=== PATIENT | male | born 1970 | race Caucasian/White ===

== ENCOUNTER 2020-03-24 15:11 | Emergency (ER) | payer OTHER ==
[~2020-03-24] VITALS: Ht 182 cm; Wt 105.0 kg
--- NOTE | 2020-03-24 15:26 | ED Lower Extremity ---
General Chief Complaint: Laceration Stated Complaint: L FINGER LAC Allergies and Home Medications Allergies Coded Allergies: No Known Drug Allergies (Unverified , 03/24/20) Past Kkjxsrh-Zlprge-Jtaifz Hx Patient Social History Recent Foreign Travel: No Contact w/Someone Who Travel: No Physical Exam Vital Signs Vital Signs - First Documented 03/24/20 15:11 Temp 37.0 Pulse 73 Resp 16 B/P (MAP) 140/88 (105) Pulse Ox 98 O2 Delivery Room Air Capillary Refill : Height, Weight, BMI Height: '" Weight: lbs. oz. kg; BMI Method: Progress/Results/Core Measures Results/Orders My Orders Orders - VALENTINO LOONEY MD Dipht,Pertuss(Acell),Tet Adult (Boostrix (03/24/20 15:30) Lidocaine 2% Injection 20 Ml (Xylocaine (03/24/20 15:27) Cephalexin Capsule (Keflex Capsule) (03/24/20 15:27) Lidocaine 1% Inj 20 Ml (Xylocaine 1% Inj (03/24/20 15:29) Lidocaine 1% Inj 20 Ml (Xylocaine 1% Inj (03/24/20 15:45) Hand, Left, 3 Views (03/24/20 15:42) Medications Given in ED Current Medications Medications Dose Ordered Sig/Manju Route Start Time Stop Time Status Last Admin Dose Admin Diphtheria/ Tetanus/Acell Pertussis 0.5 ml ONCE ONCE IM 03/24/20 15:30 03/24/20 15:32 DC 03/24/20 15:37 0.5 ML Lidocaine HCl 20 ml ONCE ONCE INJ 03/24/20 15:45 03/24/20 15:46 03/24/20 15:38 20 ML Vital Signs/I&O 03/24/20 15:11 Temp 37.0 Pulse 73 Resp 16 B/P (MAP) 140/88 (105) Pulse Ox 98 O2 Delivery Room Air VALENTINO LOONEY MD Mar 24, 2020 15:26
[2020-03-24] MEDS ORDERED: LIDOCAINE 2% 20 ML (XYLOCAINE) VIAL INJ STA (15:27)
[2020-03-24] MEDS ORDERED: CEPHALEXIN 250 MG (KEFLEX) CAP PO STA (15:27)
[2020-03-24] MEDS ORDERED: LIDOCAINE 1% INJ 20 ML 20 ML VIAL ONE (15:29)
[2020-03-24] MEDS ORDERED: TETANUS,DIPTH,PERTUSS P/F (BOOSTRIX) 0.5 ML VIAL IM ONE (15:30)
[2020-03-24] MEDS ORDERED: LIDOCAINE 1% INJ 20 ML 20 ML VIAL INJ ONE (15:45)
--- NOTE | 2020-03-24 15:48 | ED Upper Extremity ---
General Chief Complaint: Laceration Stated Complaint: L FINGER LAC Nursing Triage Note: AMBULATED TO ROOM 06 WITHOUT DIFFICULTY. STATES HE WAS AT WORK AT [employer] USING A PRESS AND CUT THE TOP OF THE LEFT 4TH FINGER OFF AND LACERATION TO 3RD NAIL. Nursing Sepsis Screen: No Definite Risk Source: patient Exam Limitations: no limitations History of Present Illness Date Seen by Provider: Mar 24, 2020 Time Seen by Provider: 15:25 Initial Comments Patient is a 49-year-old male, [id number], who presents to the emergency room with a chief complaint of injury to the left hand while at work today. 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 He had sustained partial amputation of the distal phalanx of the left fourth finger with laceration to the distal phalanx of the left third finger. No other complaints of injury reported. Patient's last tetanus is unknown. No known drug allergies. Onset: just prior to arrival Severity: severe Pain/Injury Location: left 3rd finger, left 4th finger Method of Injury: other (work related injury with screen printing machine) Allergies and Home Medications Allergies Coded Allergies: No Known Drug Allergies (Unverified , 03/24/20) Home Medications Cephalexin 500 Mg Capsule, 500 MG PO Q6H Prescribed by: VALENTINO LOONEY on 03/24/20 1631 Patient Home Medication List Home Medication List Reviewed: Yes Review of Systems Constitutional: no symptoms reported EENTM: no symptoms reported Cardiovascular: no symptoms reported Gastrointestinal: no symptoms reported Genitourinary: no symptoms reported Musculoskeletal: no symptoms reported All Other Systems Reviewed Negative Unless Noted: Yes Past Vrlnxnp-Agjztf-Fuojlv Hx Patient Social History Alcohol Use: Denies Use Recreational Drug Use: No Smoking Status: Never a Smoker Type Used: Smokeless Tobacco Recent Foreign Travel: No Contact w/Someone Who Travel: No Recent Infectious Disease Expo: No Recent Hopitalizations: No Immunizations Up To Date Tetanus Booster (TDap): Unknown Seasonal Allergies Seasonal Allergies: No Past Medical History Surgeries: Yes Orthopedic Respiratory: No Cardiac: No Neurological: No Genitourinary: No Gastrointestinal: No Musculoskeletal: No Endocrine: No HEENT: No Cancer: No Psychosocial: No Integumentary: No Physical Exam Vital Signs Vital Signs - First Documented 03/24/20 15:11 Temp 37.0 Pulse 73 Resp 16 B/P (MAP) 140/88 (105) Pulse Ox 98 O2 Delivery Room Air Capillary Refill : Less Than 3 Seconds Height, Weight, BMI Height: '" Weight: lbs. oz. kg; 31.00 BMI Method: General Appearance: WD/WN, no apparent distress HEENT: PERRL/EOMI Cardiovascular: regular rate, rhythm Respiratory: lungs clear, normal breath sounds, no respiratory distress Gastrointestinal: non tender, soft Back: normal inspection Shoulder: normal inspection Elbow/Forearm: normal inspection Wrist: Yes normal inspection Hand: Left (left third finger with amputation of distal tip of finger. No active bleedingl through the nail about mid way. 4th finger with laceration throught nail bed (dorsal finger)/ approximately 1.5cm, mild bleeding) Neurologic/Tendon: normal sensation, normal motor functions, normal tendon functions, responds to pain; No motor deficit, No sensory deficit Neurologic/Psychiatric: alert, normal mood/affect, oriented x 3 Skin: normal color, warm/dry Procedures/Interventions Wound Location: Upper Extremities Other Wound Location left 3rd and 4th fingers Wound Length (cm): 2 Wound's Depth, Shape: sub Q Wound Explored: clean Irrigated w/ Saline (ccs): 50 Betadine Prep?: Yes Anesthesia: 1% Lidocaine Suture: Ethlion Suture Size: 4-0 Number of Sutures: 1 Layer Closure?: 1 Sterile Dressing Applied?: Yes Progress/Results/Core Measures Results/Orders My Orders Orders - VALENTINO LOONEY MD Dipht,Pertuss(Acell),Tet Adult (Boostrix (03/24/20 15:30) Lidocaine 2% Injection 20 Ml (Xylocaine (03/24/20 15:27) Cephalexin Capsule (Keflex Capsule) (03/24/20 15:27) Lidocaine 1% Inj 20 Ml (Xylocaine 1% Inj (03/24/20 15:29) Lidocaine 1% Inj 20 Ml (Xylocaine 1% Inj (03/24/20 15:45) Hand, Left, 3 Views (03/24/20 15:42) Medications Given in ED Vital Signs/I&O Blood Pressure Mean: 105 Progress Progress Note : Time: 16:13 Progress Note Patient reevaluated after digital block of the left third and fourth fingers, resting comfortably. Soaked for approximately 20 minutes. Laceration noted over the nailbed of the left third finger on the dorsal aspect approximately 1- 1/4 cm. No active bleeding. Patient will receive 2 sutures to approximate wound edges. Patient will be discharged home on Keflex for 1 week he will be referred to general surgery for follow-up of the wounds as well as occupational health. 1627 digital block of 2 fingers, approximately 8cc total of 1% lidocaine used; 1 4-0 ethilon suture placed through the nail of the 4th finger with good approximation of wound edges. Patient tolerated the procedure well. Departure Impression Primary Impression: Fingertip amputation Qualified Codes: S68.119A - Complete traumatic metacarpophalangeal amputation of unspecified finger, initial encounter Additional Impression: Laceration of finger of left hand with damage to nail Qualified Codes: S61.315A - Laceration without foreign body of left ring finger with damage to nail, initial encounter Disposition: HOME, SELF-CARE Condition: Stable Departure-Patient Inst. Decision time for Depature: 16:15 Referrals: NEHEMIAH HINES DO Patient Instructions: Amputation of the Finger or Fingertip (DC), Laceration Repair With Stitches (DC) Add. Discharge Instructions: Keep your bandages in place until you follow-up with the surgeon for a wound check on Thursday, March 26. Please call the office of Dr. Hines for a follow-up appointment I have also referred you to occupational health. Please call on Thursday for a follow-up appointment. You have been given a prescription for Keflex. Please take these medications as prescribed. You can take [id number] Tylenol or ibuprofen as needed for pain. Keep the fingers elevated for the next 1 to 2 days, ice for swelling and discomfort. Return to the emergency room for any worsening pain, fever, swelling, redness, excessive drainage or other emergent concerning symptoms. Your prescription has been electronically transmitted to [facility]. All discharge instructions reviewed with patient and/or family. Voiced understanding. Scripts Cephalexin (Keflex) 500 Mg Capsule 500 MG PO Q6H for 7 Days, #28 CAP Prov: VALENTINO LOONEY MD 03/24/20 VALENTINO LOONEY MD Mar 24, 2020 15:48
--- NOTE | 2020-03-24 15:48 | NUR ---
TALKED WITH PT'S IN WAITING ROOM AND UPDATED HER.
--- NOTE | 2020-03-24 16:16 | Diagnostic Imaging Report ---
INDICATION: Injury to 3rd and 4th digits. EXAMINATION: Left hand at 4:01 p.m. Three views were obtained. COMPARISON: There is no prior study available for comparison. FINDINGS: The tuft of the distal phalanx of the 4th digit has been amputated along with the adjacent soft tissues. There is also a slightly displaced slightly comminuted fracture of the tuft of the distal phalanx of the 3rd digit. There is no other fracture identified and there is no sign of a radiopaque foreign body. IMPRESSION: There are injuries to the nida of the 3rd and 4th distal phalanges, as described above. There is no acute bony abnormality noted otherwise. Dictated by: Dictated on workstation # [id number]
[2020-03-24] MEDS ORDERED: CEPH-507 PO (16:31)
[2020-03-24 16:49] VITALS: BP 134/85
== END 2020-03-24 16:49 | disposition home or self-care (01) ==
LOC: EDUNIT# 15:11 → ER 15:14
DX: S61.315A Laceration without foreign body of left ring finger with damage to nail, initial encounter (principal); W23.1XXA Caught, crushed, jammed, or pinched between stationary objects, initial encounter
CPT/HCPCS: 12041; 73130; 90715

== ENCOUNTER 2021-11-27 05:40 | Outpatient (CLI) | payer BC ==
[~2021-11-27] VITALS: Ht 182.9 cm; Wt 110.6 kg
[~2021-11-27 05:40] MED LIST: CEPH-507 PO
[2021-11-27] MEDS ORDERED: LORA10TA7 PO (09:00)
== END 2021-11-27 09:06 | disposition home or self-care (01) ==
LOC: PREOP 05:40
PROVIDERS: ATTEND Surgery
DX: Z01.818 Encounter for other preprocedural examination (principal)

== ENCOUNTER 2021-12-09 07:03 | Day surgery (SDC) | payer BC ==
[~2021-12-09] VITALS: Ht 182.9 cm; Wt 110.6 kg
[~2021-12-09 07:03] MED LIST changes: +LORA10TA7 PO
[2021-12-09] MEDS ORDERED: LACTATED RINGERS 1,000 ML IV STA (07:05)
[2021-12-09] MEDS ORDERED: PROPOFOL INJECTION 50 ML IV ONE ×2 (07:22→08:02)
[2021-12-09 07:23] VITALS: BP 118/76
[2021-12-09] MEDS ORDERED: MIDAZOLAM 2 MG/2 ML (VERSED) VIAL ONE (08:01)
--- NOTE | 2021-12-09 08:15 | Progress Note-Post Operative ---
Post-Operative Progess Note Surgeon (s)/Hand Shaper (s) Surgeon ROSIE VALENTIN DO Hand Shaper: na Pre-Operative Diagnosis screening colonoscopy Post-Operative Diagnosis diverticulosis, colon polyps Procedure & Operative Findings Date of Procedure 12/09/21 Procedure Performed/Findings colonoscopy c hot bx polypectomy Anesthesia Type per benzene operator Estimated Blood Loss Estimated blood loss (mL): none Specimens/Packing Specimens Removed colon polyps ROSIE VALENTIN DO Dec 09, 2021 08:15
--- NOTE | 2021-12-09 08:16 | Discharge Inst-Simple/Standard ---
Discharge Inst-Standard Patient Instructions/Follow Up Plan of Care/Instructions/FU: 2 weeks Deb Activity as Tolerated: Yes Discharge Diet: Regular Diet (high fiber) ROSIE VALENTIN DO Dec 09, 2021 08:16
--- NOTE | 2021-12-09 08:16 | Anesthesia-General Post-Op ---
MAC Patient Condition Mental Status/LOC: Same as Preop Cardiovascular: Satisfactory Nausea/Vomiting: Absent Respiratory: Satisfactory Pain: Controlled Complications: Absent Post Op Complications Complications None Follow Up Care/Instructions Patient Instructions None needed. Anesthesiology Discharge Order Discharge Order Patient is doing well, no complaints, stable vital signs, no apparent adverse anesthesia problems. No complications reported per nursing. ANISA DOMINGUEZ CRNA Dec 09, 2021 08:16
[2021-12-09 08:18] VITALS: BP 121/68
[2021-12-09 08:50] VITALS: BP 110/70
--- NOTE | 2021-12-09 09:20 | OPERATIVE REPORT ---
DATE OF SERVICE: 12/09/2021 PREOPERATIVE DIAGNOSIS: Screening colonoscopy. POSTOPERATIVE DIAGNOSES: Diverticulosis, colon polyps. PROCEDURE: Colonoscopy with hot biopsy polypectomy x3. SURGEON: Rosie Boyd DO ANESTHESIA: Per ONCOLOGY REP. ESTIMATED BLOOD LOSS: None. COMPLICATIONS: None. INDICATIONS: The patient is a 51-year-old male needing screening colonoscopy. He understands risks and benefits of procedure, wishes to proceed. Consent was signed in the chart. DESCRIPTION OF PROCEDURE: The patient was taken to the endoscopy suite, placed in left lateral recumbent position. Timeout was performed. Digital rectal exam was performed. No palpable polyps, masses or ulcerations. Scope was inserted in the rectum and advanced all the way to cecum with minimal difficulty. Prep was adequate. Scope was slowly retracted back. No polyps, masses or ulcerations in the cecum, ascending, transverse and descending colon. In the sigmoid colon, diverticulosis present. Three small polyps were present within the sigmoid colon, which hot biopsy polypectomy was performed. Scope was then continuously retracted back into the rectum where it was also retroflexed noting no other pathology. Scope was returned to its normal position, slowly withdrawn until completely removed. The patient tolerated the procedure well without any complications. He was taken to recovery room in stable condition. RECOMMENDATIONS: The patient will need repeat colonoscopy in 5 years. Any issues before that be seen at that time. We would recommend a high fiber diet due to diverticulosis. The patient will follow up in 2 weeks to discuss pathology results and proceed. CC: Dr. Lane - requested, unable to deliver. Job ID: [id number] DocumentID: [id number] Dictated Date: 12/09/2021 08:18:55 Intensive Care Unit Registered Nurse Date: 12/09/2021 09:19:03 Dictated By: ROISE BOYD DO
== END 2021-12-09 08:55 | disposition home or self-care (01) ==
LOC: ENDO 07:03
PROVIDERS: ATTEND Surgery
DX: Z12.11 Encounter for screening for malignant neoplasm of colon (principal); K63.5 Polyp of colon; K57.30 Diverticulosis of large intestine without perforation or abscess without bleeding; F17.290 Nicotine dependence, other tobacco product, uncomplicated